=== PATIENT | female | born 1945 | race Caucasian/White ===

== ENCOUNTER → 2017-06-03 | Outpatient (CLI) | payer OTHER | LOC: BRMIMAGING 14:18 | PROVIDERS: ATTEND Family Medicine Geriatric Medicine | DX: Z12.31 Encounter for screening mammogram for malignant neoplasm of breast (principal); M17.0 Bilateral primary osteoarthritis of knee; S83.011A Lateral subluxation of right patella, initial encounter; S83.012A Lateral subluxation of left patella, initial encounter; Z80.3 Family history of malignant neoplasm of breast | CPT/HCPCS: 73562-PO ==